=== PATIENT | female | born 1975 | race Caucasian/White ===

== ENCOUNTER 2018-04-19 20:55 | Emergency (ER) | payer MEDICAID ==
[~2018-04-19] VITALS: Ht 157.5 cm; Wt 96.3 kg
[2018-04-19 21:15] VITALS: Ht 157.5 cm; Wt 96.3 kg
[2018-04-19 22:10] VITALS: BP 132/87
== END 2018-04-19 22:32 | disposition home or self-care (01) ==
LOC: ED 20:55
DX: B02.9 Zoster without complications (principal)
CPT/HCPCS: J1885